=== PATIENT | female | born 1985 | race Caucasian/White ===

== ENCOUNTER 2021-02-21 09:07 | Outpatient (REF) | payer OTHER, SELFPAY ==
--- NOTE | ~2021-02-21 | US_ITS ---
EXAMINATION: US ABDOMEN COMPLETE CLINICAL INFORMATION: Abnormal LFTs. COMPARISON: Ultrasound abdomen complete 06/05/2015 and 06/27/2014. TECHNIQUE: Real-time imaging of the abdominal viscera. FINDINGS: PANCREAS: Not well visualized due to bowel gas. ABDOMINAL AORTA: The proximal, mid, and distal segments are normal in caliber. INFERIOR VENA CAVA: Visualized portions are normal. LIVER: The liver is not optimally visualized. Liver size and contour are normal. The echotexture is increased. No focal liver lesion or biliary ductal dilatation is seen. GALLBLADDER: Surgically absent. COMMON BILE DUCT: Normal in caliber measuring 0.3 cm in diameter. RIGHT KIDNEY: Normal. No hydronephrosis. No renal calculi or focal parenchymal lesions. The kidney measures 10.3 cm in maximum dimension. LEFT KIDNEY: Normal. No hydronephrosis. No renal calculi or focal parenchymal lesions. The kidney measures 10.3 cm in maximum dimension. SPLEEN: Normal. The spleen measures 9.0 cm in maximum dimension. FREE FLUID: None. US/US abdomen complete IMPRESSION: Limited visualization of the liver and pancreas. Liver echotexture is increased probably representing fatty infiltration.
== END 2021-02-21 09:08 | disposition home or self-care (01) ==
LOC: HO.US 09:07
PROVIDERS: PCP Internal Medicine; Visit Provider Internal Medicine
DX: R94.5 Abnormal results of liver function studies (principal)
CPT/HCPCS: 76700

== ENCOUNTER 2021-04-20 11:00 | Outpatient (RCR) | payer OTHER, SELFPAY | END 2021-11-05 11:29 | disposition home or self-care (01) | LOC: HO.PTCHIC 11:00 | PROVIDERS: PCP Internal Medicine; Visit Provider General Practice | DX: S46.912D Strain of unspecified muscle, fascia and tendon at shoulder and upper arm level, left arm, subsequent encounter (principal) | CPT/HCPCS: 97014; 97110; 97140; 97161 ==

== ENCOUNTER → 2021-05-07 10:14 | Outpatient (BNVA) | payer OTHER, SELFPAY | PROVIDERS: PCP Internal Medicine; Visit Provider Internal Medicine | DX: M79.602 Pain in left arm (principal); M94.0 Chondrocostal junction syndrome [Tietze] | CPT/HCPCS: 99202 ==

== ENCOUNTER → 2021-05-21 09:16 | Outpatient (BNVA) | payer OTHER, SELFPAY | PROVIDERS: PCP Internal Medicine; Visit Provider Internal Medicine | DX: M79.602 Pain in left arm (principal); M25.512 Pain in left shoulder; R20.0 Anesthesia of skin | CPT/HCPCS: 99212 ==

== ENCOUNTER 2021-06-07 13:24 | Outpatient (REF) | payer OTHER, SELFPAY ==
--- NOTE | ~2021-06-07 | MR_ITS ---
EXAMINATION: MRI LEFT SHOULDER WITHOUT CONTRAST CLINICAL INFORMATION: Left shoulder pain COMPARISON: None. TECHNIQUE: MRI of the shoulder without contrast is performed on a 1.5 Marely high-field scanner. FINDINGS: ROTATOR CUFF: Supraspinatus tendinosis. No rotator cuff tear. No muscle atrophy or fatty infiltration. BICEPS: Normal. CORACOACROMIAL ARCH: The undersurface of the acromion is flat with no subacromial spur. The acromioclavicular joint is normal. Mild subacromial subdeltoid bursitis. LABRUM/CAPSULE: Normal. GLENOHUMERAL JOINT/MARROW: No significant joint effusion. No focal articular cartilage defect. ADDITIONAL FINDINGS: None. MR/MR shoulder LT wo con IMPRESSION: Mild supraspinatus tendinosis and subacromial subdeltoid bursitis. No rotator cuff tear.
== END 2021-06-07 13:25 | disposition home or self-care (01) ==
LOC: HO.MRI 13:24
PROVIDERS: PCP Internal Medicine; Visit Provider Internal Medicine
DX: M79.602 Pain in left arm (principal); M25.512 Pain in left shoulder
CPT/HCPCS: 73221

== ENCOUNTER 2021-08-16 10:10 | Outpatient (REF) | payer OTHER, SELFPAY ==
--- NOTE | 2021-08-16 | EMG_ITS ---
Left median, ulnar, motor, and sensory studies were performed. Left radial sensory study was performed and paraspinal muscles were tested. IMPRESSION: This study was unremarkable with no evidence of entrapment neuropathy affecting left hand and arm. MD DWAIN Ferrara/TIMOTHY / [id number]
== END 2021-08-16 10:11 | disposition home or self-care (01) ==
LOC: HO.NEURO 10:10
PROVIDERS: Visit Provider Internal Medicine
DX: R20.0 Anesthesia of skin (principal)
CPT/HCPCS: 95886; 95909

== ENCOUNTER → 2021-08-24 08:51 | Outpatient (BNVA) | payer OTHER, SELFPAY | PROVIDERS: PCP Internal Medicine; Visit Provider Internal Medicine ==

== ENCOUNTER → 2021-11-09 08:51 | Outpatient (BNVA) | payer OTHER, SELFPAY | PROVIDERS: PCP Internal Medicine; Visit Provider Internal Medicine | DX: Z13.89 Encounter for screening for other disorder (principal) ==

== ENCOUNTER 2021-11-16 05:56 | Outpatient (REF) | payer OTHER, SELFPAY | END 2021-11-16 05:57 | disposition home or self-care (01) | LOC: HO.RADIR 05:56 | PROVIDERS: Visit Provider Internal Medicine | DX: M25.512 Pain in left shoulder (principal) | CPT/HCPCS: 20610 ==

== ENCOUNTER → 2022-02-01 09:53 | Outpatient (BNVA) | payer OTHER, SELFPAY | PROVIDERS: PCP Internal Medicine; Visit Provider Internal Medicine | DX: M25.512 Pain in left shoulder (principal) | CPT/HCPCS: 20610; 99212; J2795; J3300 ==

== ENCOUNTER 2022-08-27 11:55 | Outpatient (REF) | payer OTHER, SELFPAY | END 2022-08-27 11:56 | disposition home or self-care (01) | LOC: HO.NEURO 11:55 | PROVIDERS: PCP Internal Medicine; Visit Provider Internal Medicine | DX: Z13.89 Encounter for screening for other disorder (principal) ==

== ENCOUNTER 2022-08-28 12:53 | Outpatient (REF) | payer OTHER, SELFPAY ==
--- NOTE | 2022-08-28 | EMG_ITS ---
Please see scanned EMG / Nerve Conduction Report. MTDD
== END 2022-08-28 12:54 | disposition home or self-care (01) ==
LOC: HO.NEURO 12:53
PROVIDERS: PCP Internal Medicine; Visit Provider Internal Medicine
DX: M79.605 Pain in left leg (principal)
CPT/HCPCS: 95885; 95913

== ENCOUNTER → 2023-09-05 07:54 | Outpatient (REF) | payer OTHER, SELFPAY ==
--- NOTE | ~2023-09-05 | XR_ITS ---
EXAMINATION: XR CHEST CLINICAL INFORMATION: Chest wall pain reproducible upon exam. Left chest wall pain. COMPARISON: None available. TECHNIQUE: 2 views of the chest were obtained. FINDINGS: There is no gross pneumothorax. Heart size is normal. Surgical clips in the right upper quadrant of the abdomen. No pleural effusion. Minimal degenerative changes in the thoracic spine. No focal consolidation to suggest pneumonia. Focal convexity along the right heart border of indeterminate etiology. Correlation with the clinical exam recommended. Direct correlation with prior images is recommended and if prior images are provided, an addendum will be dictated. In the absence of prior images, CT scan could be considered for further evaluation. XR/XR chest 2V IMPRESSION: Focal convexity along the right heart border of indeterminate etiology. Correlation with the clinical exam recommended. Direct correlation with prior images is recommended and if prior images are provided, an addendum will be dictated. In the absence of prior images, CT scan could be considered for further evaluation. This study was presented today September 08, 2023 for interpretation. Stat results provided at this time as requested by referring provider.
--- NOTE | ~2023-09-05 | XR_ITS ---
EXAMINATION: XR SHOULDER, LEFT CLINICAL INFORMATION: Decreased range of motion, tenderness on palpation. COMPARISON: MR left shoulder of 06/07/2021. TECHNIQUE: 4 views of the left shoulder. FINDINGS: Mild degenerative changes in the acromioclavicular joint with joint space narrowing and hypertrophic change. Degenerative changes with hypertrophic change along the glenoid. XR/XR shoulder LT min 2V IMPRESSION: 1. Mild degenerative changes in the acromioclavicular joint. 2. Degenerative changes with hypertrophic change along the glenoid.
--- NOTE | 2023-09-05 07:58 | CA_ITS ---
Acquisition Time: 2023-09-05 08:38:56 Total Exercise Time: 00:06:31 Test Indications: CP, SOB Medications: SEE H Protocol: HILTON Max HR: 169 BPM 91% of Pred: 184 BPM Max BP: 154/078 mmHG Max Work Load: 7.7 METS Exercise stress test exercise 6 min 31 sec of Hilton protocol achieving 91% MPHR, with mild SOB, no chest discomfort, with isolated PVC, with normotensive response to exercise, withinverted T wave lead 3. Breathing returned to normal quickly with rest. Test reviewed with Dr. Phoenix. Referred By: Jena Alarcon Overread By: Libertad Sandoval
== END ==
LOC: HO.CARD 07:54
PROVIDERS: PCP Internal Medicine; Visit Provider Family Medicine
DX: R07.89 Other chest pain (principal); M25.512 Pain in left shoulder
CPT/HCPCS: 71046; 73030; 93017

== ENCOUNTER → 2023-09-05 07:58 | Outpatient (BNV) | payer OTHER, SELFPAY | PROVIDERS: PCP Internal Medicine; Visit Provider Nurse Practitioner | DX: R07.89 Other chest pain (principal); R06.02 Shortness of breath | CPT/HCPCS: 93016; 93018 ==

== ENCOUNTER 2023-11-19 10:47 | Outpatient (AMB) | payer OTHER, SELFPAY ==
--- NOTE | 2023-11-19 10:52 | A.OFFVIS_ITS ---
Vital Signs 11/19/23 10:53 Height 5 ft 2 in Weight 213 lb 13.574 oz BMI 39.1 BP 120/60 Blood Pressure Location Lt brachial Position Sitting Pulse 84 Pulse Source Pulse Oximeter Intake Visit Reasons: [employer]/Dr. Small/Chest pain Allergies No Known Allergies Allergy (Verified 02/01/22 10:00) Medication List - Last Reconciled 11/19/23 by Jeferson Best MD cholecalciferol (vitamin D3) 50 mcg PO DAILY cyclobenzaprine 5 mg PO TID PRN diclofenac sodium 1% (Arthritis Pain (diclofenac)) 4 grams topical QID HPI Comments Details: Mirlande is here for consultation regarding chest pains. She states that she has had this pain for quite some time now. Essentially pain in the sternal area and it goes to the left shoulder area and then down the left arm. However, it is essentially present all the time, 24 hours a day. If she can be resting, sitting, lying down extra and she has the pain. Nothing exertional. Additionally, in certain positions, the pain is much worse than the other. Overall, seems to be rather musculoskeletal and not cardiac. No previous cardiac history otherwise. [facility] Medical History (Updated 11/19/23 @ 11:03 by Carla Alvarado) FH: cholecystectomy Right nephrolithiasis Sciatica, left side Tobacco abuse Surgical History (Updated 11/19/23 @ 11:03 by Carla Alvarado) Hx of cholecystectomy Family History (Updated 11/19/23 @ 11:04 by Carla Alvarado) Father Heart attack Social History (Updated 11/19/23 @ 11:05 by Carla Alvarado) Alcohol intake: current Alcohol intake frequency: holidays/special occasions only Patient Tobacco Use Status: Current someday Tobacco user Tobacco use type: Cigarette Review of Systems Const Denies weakness ENT Denies dizziness Card Reports chest pain, Reports chest pain with activity, Denies syncope, Denies rapid heart rate, Denies pedal edema, Denies edema, Denies leg edema, Denies lightheadedness, Denies palpitations, Denies dyspnea, Denies dyspnea on exertion and Denies orthopnea Resp Denies cough, Denies dyspnea and Denies dyspnea on exertion GI Denies hematochezia and Denies change in stool character Musc Denies abnormal gait, Denies muscle cramps, Denies muscle weakness, Denies numbness, Denies radiating pain into limb and Denies tingling Neuro Denies abnormal gait, Denies dizziness, Denies syncope, Denies numbness, Denies tingling and Denies weakness Endo Denies palpitations Physical Exam Vital Signs: Last Vital Signs Pulse 84 11/19/23 10:53 BP 120/60 11/19/23 10:53 BMI result Body Mass Index 39.1 Const General: comfortable and no acute distress Orientation/consciousness: patient oriented x3 HEENT Other: Unremarkable Head: Yes normal to inspection Neck Neck: Yes normal visual inspection Chest Chest palpation & inspection: normal inspection of the chest Resp Auscultation: clear to auscultation bilaterally Cardio Palpation: normal PMI Heart sounds: S1 normal heart sound present, S2 normal heart sound present, no gallops, no murmurs and no rubs GI Palpation (GI): Soft to palpation Back/Spine/Pelvis Other: unremarkable Skin General skin exam: no rashes or lesions noted Neuro General: patient oriented x3 Extrem General: Yes normal to inspection Psych Mental Status: mental status grossly normal Office Procedures EKG Details: EKG with sinus rhythm at 84/Min; no significant ST-T changes and otherwise unremarkable[place] [id number], Complete Assessment & Plan Assessment & Plan (1) Costochondritis: Code(s): M94.0 - Chondrocostal junction syndrome [Tietze] Category: Medical (2) Left shoulder pain: Code(s): M25.512 - Pain in left shoulder Category: Medical Plan Her symptoms are suggestive of musculoskeletal etiology. Non anginal. It seems that she has already had a stress test through her own PCP. That is negative at 7.7 Mets. No further cardiac workup is necessary. Weight loss, smoking cessation discussed. Coding Level of Care Code New Pt Level 3 (44330) Diagnoses Costochondritis M94.0 Left shoulder pain M25.512 CPT Codes EKG - CPT: 05370-[id number], Complete ([id number])
[2023-11-19 10:53] VITALS: BP 120/60; PULSE 84; BMI 39.1
== END 2023-11-19 11:28 | disposition home or self-care (01) ==
PROVIDERS: PCP Internal Medicine; Visit Provider Internal Medicine
DX: M94.0 Chondrocostal junction syndrome [Tietze] (principal); M25.512 Pain in left shoulder
CPT/HCPCS: 93010; 99203

== ENCOUNTER → 2023-11-19 10:47 | Outpatient (BNVA) | payer OTHER, SELFPAY | PROVIDERS: PCP Internal Medicine; Visit Provider Internal Medicine | DX: M94.0 Chondrocostal junction syndrome [Tietze] (principal); M25.512 Pain in left shoulder | CPT/HCPCS: 93005; 99202 ==

== ENCOUNTER 2024-09-29 11:48 | Outpatient (REF) | payer OTHER, SELFPAY ==
[2024-09-29 14:12] LABS: MANUAL DIFF FLAG NO
[2024-09-29 14:20] LABS: Basophils Absolute Auto 0.1 X10*3/uL (0.0-0.2); Basophils Percent Auto 0.5 % (0-2); Eosinophils Absolute Auto 0.1 X10*3/uL (0.0-0.4); Eosinophils Percent Auto 0.6 % (0-4); Hematocrit 39.9 % (37.0-47.0); Hemoglobin 13.5 g/dl (12.0-16.0); Imm Gran Abs Auto 0.03 X10*3/uL (0.00-0.03); Imm Gran Pct Auto 0.3 % (0.0-0.4); Lymphocytes Absolute Auto 4.2 X10*3/uL (1.2-4.9); Lymphocytes Percent Auto 42.3 % (20-40); Mean Corpuscular HGB Conc 33.8 g/dl (31.0-35.0); Mean Corpuscular Hemoglobin 30.7 pg (27.0-33.0); Mean Corpuscular Volume 90.7 fL (80.0-98.0); Mean Platelet Volume 9.4 fL (9.4-12.3); Monocytes Absolute Auto 0.5 X10*3/uL (0.1-1.2); Monocytes Percent Auto 4.7 % (2-11); Neutrophils Absolute Auto 5.1 x10*3/uL (2.0-8.3); Neutrophils Percent Auto 51.6 % (45-73); Platelet Count 350 X10*3/uL (160-400); Red Cell Distribution Width 13.1 % (11.0-16.0)
--- OUTSIDE RECORDS SUMMARY | 2024-09-29 14:24 | XMS_ITS | Encounter Summary ---
Author Organization [employer] Address [address] [facility] [address] [place] [address] Care Team Providers Care Executive Communications Manager Name Role Phone Gilbert Small MD Primary Care Provider [phone] Reason for Visit * Reason Onset Date Comments Chart Prep 09/27/2024 Encounter Details Date Type Department Care Team ([facility] st Contact Info) Description 09/27/2024 Telephone [facility] PEDS [address], [place] [id number] Gilbert Small MD [address] [place] [address] Chart Prep Social History Tobacco Use Types Packs/Day Years Used Date Smoking Tobacco: Never Passive Smoke Exposure: Never Smokeless Tobacco: Never Depression Answer Date Recorded Patient Health Questionnaire-9 Score 0 07/04/2022 Depression Answer Date Recorded Patient Health Questionnaire-2 Score 0 07/04/2022 Comments Unknown Sex and Gender Information Value Date Recorded Sex Assigned at Female 04/29/2022 10:22 AM EDT Legal Sex Female 10:22 AM EDT Gender Identity Female 04/29/2022 10:22 AM EDT Sexual Orientation Choose not to disclose 2021 10:22 AM EDT documented as of this encounter Miscellaneous Notes * Telephone Encounter - Mayra Ross MA - 09/27/2024 3:09 PM EDT Chart Prep Labs: not applicable Images: done Vaccines due: yes Referrals: complete Screenings: na Overdue care gaps: Sbirt, SDOH, PHQ-9, Oral Health, Disability documented in this encounter Plan of Treatment Upcoming Encounters Date Type Department Care Team (Late st Contact Info) Description 11/03/2024 9:45 AM EDT Procedure Visit [facility] PED[facility] [address] [place] [address] Arlyn Zacarias MD [address] [place] [address] 12/30/2024 11:30 AM EDT Office Visit [facility] [address] [place] [address] Gilbert Small MD [address] [place] [address] documented as of this encounter Visit Diagnoses Not on filedocumented in this encounter Additional Health Concerns Assessment Noted Time PHQ-9 Depression Total Score: 0 07/04/19 23 2:51 PM EST documented as of this encounter Care Teams Executive Communications Manager Relationship Specialty Start Date End Date Gilbert Small MD [address] [place] [address] PCP - General Internal Medicine 06/11/11 documented as of this encounter
--- OUTSIDE RECORDS SUMMARY | 2024-09-29 14:24 | XMS_ITS | Encounter Summary ---
Author Organization [employer] Address [address] [facility] [address] [place] [address] Care Team Providers Care Account Clerk Name Role Phone Gilbert Small MD Primary Care Provider [phone] Encounter Details Date Type Department Care Team (Latest Contact Info) Description 09/29/2024 Travel Social History Tobacco Use Types Packs/Day Years Used Date Smoking Tobacco: Never Passive Smoke Exposure: Never Smokeless Tobacco: Never Alcohol Answer Date Recorded Q1: How often do you have a drink containing alc ohol? 2 09/29/2024 Q2: How many drinks containi ng alcohol do you have on a typical day when you are drinking? 0 09/29/2024 Q3: How often do you have six or more drinks on one occasion? 2 09/29/2024 Depression Answer Date Recorded Patient Health Questionnaire-9 Score 0 09/29/2024 Patient Health Questionnaire-9 Score 0 09/29/2024 Last PHQ-9: Questionnaire Data Not on file 0 09/29/2024 Housing Stability Answer Date Recorded What is your housing situation today? I have elliot orr 09/29/[address] you li ve. Do you have problems with any of the following? None of the above 09/29/2024 Food Insecurity Answer Date Recorded Within the past 12 months, y ou worried that your food would run out before you got money to buy more: Never True 09/29/2024 Within the past 12 months,th e food you bought just didn't last and you didn't have enough money to get more: Never True 07/2024 Transportation Answer Date Recorded In the past 12 months, has l ack of transportation kept you from medical appts, meetings, work or from getting things needed for daily living? No 09/29/2024 Utilities Answer Date Recorded In the past 12 months, has t he electric, gas, oil or water company threatened to shut off services in your home? No 09/29/2024 Depression Answer Date Recorded Patient Health Questionnaire-2 Score 0 09/29/2024 Internet Access Answer Date Recorded Internet Access Q1 Yes 09/29/2024 Internet Access Q2 Not on file 09/29/2024 Comments Unknown Sex and Gender Information Value Date Recorded Sex Assigned at Female 04/29/2022 10:22 AM EDT Legal Sex Female 10:22 AM EDT Gender Identity Female 04/29/2022 10:22 AM EDT Sexual Orientation Choose not to disclose 2021 10:22 AM EDT documented as of this encounter Plan of Treatment Upcoming Encounters Date Type Department Care Team (Late st Contact Info) Description 11/03/2024 9:45 AM EDT Procedure Visit [facility] MED & PEDS [address] [place] [address] Arlyn Zacarias MD [address] [place] [address] 12/30/2024 11:30 AM EDT Office Visit [facility] MED [facility] PEDS [address] [place] [address] Gilbert Small MD [address] [place] [address] documented as of this encounter Visit Diagnoses Not on filedocumented in this encounter Additional Health Concerns Assessment Noted Time PHQ-9 Depression Total Score: 0 09/30/19 25 10:45 AM EDT documented as of this encounter Care Teams Account Clerk Relationship Specialty Start Date End Date Gilbert Small MD [address] [place] [address] PCP - General Internal Medicine 06/11/11 documented as of this encounter
--- OUTSIDE RECORDS SUMMARY | 2024-09-29 14:24 | XMS_ITS | Clinical Summary ---
Author Organization [employer] Address [address] [facility] [address] [place] [address] Care Team Providers Care Public Relations Supervisor Name Role Phone Gilbert Small MD Primary Care Provider [phone] Allergies No known active allergies Medications aluminum-magne sium hydroxide-snehal thicone (Maalox Max) 400-400-40 MG/5ML suspension take 20 milliliter by oral route between meals and at bedtime as needed 05/02/20 22 Active amitriptyline (Elavil) 25 MG tablet Take 1 tablet by mouth at bed time. 04/23/20 21 Active cholecalcifero l (Vitamin D-3) 50 MCG (2000 UT) tablet Take 1 tablet by mouth at bed time. 03/18/20 22 Active cholecalcifero l (Vitamin D-3) 50 MCG (2000 UT) tablet Take by mouth in the morning. 03/18/20 22 Active celecoxib (CeleBREX) 200 MG capsuleIndicat ions:Costochon dritis, acute Take 1 capsule (200 mg) by mouth every 12 (twelve) hours. 30 capsule 07/04/19 23 Active azithromycin (Zithromax) 250 MG tabletIndicati ons:Squamous blepharitis of left upper eyelid Take 2 tabs orally on day 1 and then 1 tab orally for 4 more days 6 tablet 08/08/19 23 Active diclofenac (Cataflam) 50 MG tablet Take 1 tablet (50 mg) by mouth 3 times daily. 90 tablet 09/01/19 24 Active cyclobenzaprin e (Flexeril) 10 MG tabletIndicati ons:Muscle spasm Take 1 tablet (10 mg) by mouth 3 times daily for 10 days. 30 tablet 09/30/19 25 025 Active phentermine 15 MG capsuleIndicat ions:Class 2 obesity due to excess calories without serious comorbidity with body mass index (BMI) of 38.0 to 38.9 in adult Take 1 capsule (15 mg) by mouth before breakfast. 30 capsule 09/30/19 25 025 Active topiramate (Topamax) 25 MG tabletIndicati ons:Class 2 obesity due to excess calories without serious comorbidity with body mass index (BMI) of 38.0 to 38.9 in adult Take 1 tablet (25 mg) by mouth every 12 (twelve) hours. 60 tablet 11 09/30/19 25 026 Active fluconazole (Diflucan) 150 MG tabletIndicati ons:Pityriasis versicolor 2 tabs on day 1, 2 tabs on day 7 4 tablet 09/30/19 25 Active cyclobenzaprin e (Flexeril) 10 MG tablet Take 1 tablet (10 mg) by mouth 3 times daily for 10 days. 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 Ordered stress test and XR of chest. Acute pain of left shoulder 09/01/2023 Assessment & Plan (09/02/2023 2:49 AM EST): Ordered XR of left shoulder. Prescribed diclofenac and cyclenzaprine for pain management. Kidney stone 07/04/2022 Sciatica 11/28/2017 Encounters Date Type Department Care Team Description 09/29/2024 10:45 AM EDT Office Visit [facility] [address] [place] [address] Gilbert Small MD Annual physical exam (Primary Dx); Left-sided chest wall pain; Muscle spasm; Dietary counseling; Exercise counseling; Class 2 obesity due to excess calories without serious comorbidity with body mass index (BMI) of 38.0 to 38.9 in adult; Pityriasis versicolor 09/29/2024 Travel 09/28/2024 Travel 09/27/2024 Telephone [facility] [address] [place] [address] Gilbert Small MD Chart Prep 09/21/2024 Patient Outreach [facility] [address] [place] [address] Gilbert Small MD Pre-visit Planning (Pre visit planning unable to LVM ) from Last 3 Months Immunizations Name Administration Dates Next Due Influenza injectable quadriv alent IIV4 with preservative 03/15/2015 Influenza injectable quadriv alent preservative free 03/18/2022,04/05/2021,04/13/2020,2016 Influenza, IIV3, injectable 05/02/2014 Influenza, Split (incl. milan fied surface antigen) 03/15/2013 Tdap 08/13/2016 Family History Medical History Relation Name Comments Coronary artery disease Father Diabetes Father Hyperlipidemia Father Coronary artery disease Mother Depression Mother Thyroid disease Mother Relation Name Status Comments Father Mother Social History Tobacco Use Types Packs/Day Years Used Date Smoking Tobacco: Never Passive Smoke Exposure: Never Smokeless Tobacco: Never Tobacco Cessation:Counseling Given: Not Answered Alcohol Answer Date Recorded Q1: How often [...] not to disclose 2021 10:22 AM EDT Last Filed Vital Signs Vital Sign Reading Time Taken Comments Blood Pressure 124/86 09/29/2024 10:44 AM EDT Pulse 86 09/29/2024 10:44 AM EDT Temperature 36.6 ??C (97.8 ??F) 09/29/2024 10:44 AM E DT Respiratory Rate 20 09/29/2024 10:44 AM EDT Oxygen Saturation 98% 09/29/2024 10:44 AM EDT Inhaled Oxygen Concentration - - Weight 97.8 kg (215 lb 9.6 oz) 09/29/2024 10:44 AM EDT Height 159 cm (5' 2.6 ) 09/29/2024 10:44 AM EDT Body Mass Index 38.68 09/29/2024 10:44 AM EDT Plan of Treatment Upcoming Encounters Date Type Department Care Team (Late st Contact Info) Description 11/03/2024 9:45 AM EDT Procedure Visit [facility] [address] [place] [address] Arlyn Zacarias MD [address] [place] [address] 12/30/2024 11:30 AM EDT Office Visit [facility] [address] [place] [address] Gilbert Small MD [address] [place] [address] Health Maintenance Due Date Last Done Comments Family Planning (PISQ) 2001 Hepatitis B Vaccines (1 of 3 - 19+ 3-dose series) 2005 HPV/Cotest 07/23/2023 07/23/2022, 11/12/2018 Pap Smear 07/23/2023 07/23/2022, 11/12/2018 COVID-19 Vaccine ( season) 2024 11/19/2020, 10/29/2020 Influenza Vaccine (#1) 2024 , 04/05/2021, 04/13/2020, Additional history exists Cervical Cancer Screening 08/02/2025 Po stponed from 07/23/2023 (Other Medical Reasons) Alcohol/Substance Use Screening 09/29/2025 09/29/2024 Depression Screening 09/29/2025 09/29/2024, 09/30/19 25 SDOH Screening 09/29/2025 09/29/2024 Tobacco Screening 09/29/2025 09/29/2024 Lipid Panel 01/30/2026 01/30/2021 DTaP/Tdap/Td Vaccines (2 - Td or Tdap) 08/13/2026 08/13/2016 Zoster Vaccines (1 of 2) 2036 RSV Patients and Patients Aged 60 years or older (1 - 1-dose 75+ series) 2061 HIV Screening Completed 10/18/2021 Hepatitis C Screening Completed 10/18/2021, 021 HIB Vaccines Aged Out No longer eligi ble based on patient's age to complete this topic HPV Vaccines Aged Out No longer eligi ble based on patient's age to complete this topic Hepatitis A Vaccines Aged Out No long er eligible based on patient's age to complete this topic IPV Vaccines Aged Out No longer eligi ble based on patient's age to complete this topic Meningococcal Vaccine Aged Out No hussain denis eligible based on patient's age to complete this topic Pneumococcal Vaccine: Pediatrics (0 to 5 Years) and At-Risk Patients (6 to 49) Years) Aged Out No longer eligible based on patient's age to complete this topic RSV under 20 months Aged Out No longe r eligible based on patient's age to complete this topic Rotavirus Vaccines Aged Out No longer eligible based on patient's age to complete this topic Procedures Procedure Name Priority Date/Time Associated Diagnosis Comments CBC WITH AUTO DIFFERENTIAL Routine 09/29/2024 11:50 AM EDT Annual physical exam THINPREP IMAGING PAP AND HPV MRNA E6/E7, WITH CT/NG, TRICHOMONAS Routine 07/23/2022 12:00 AM EST ZZZ HISTORICAL HEPATITIS C AB W/REFL TO HCV RNA, QN, PCR Routine 10/18/2021 10:55 AM EDT HIV 1/2 ANTIGEN/ANTIBODY, FOURTH GENERATION W/RFL Routine 10/18/2021 10:55 AM EDT LIPID PANEL, STANDARD Routine 01/30/2021 11:20 AM EDT from Last 3 Months or Most Recently Relevant to Health Maintenance Results * (ABNORMAL) CBC auto differential (09/29/2024 11:50 AM EDT) White Blood Count 10.0 4.8 - 10.8 X10*3/uL [facility] Red Blood Count 4.40 4.20 - 5.50 X10*6/uL [facility] Hemoglobin 13.5 12.0 - 16.0 g/dl [facility] Hematocrit 39.9 37.0 - 47.0 % [facility] Mean Corpuscular Volume 90.7 80.0 - 98.0 fL [facility] Mean Corpuscular Hemoglobin 30.7 27.0 - 33.0 pg [facility] Mean Corpuscular HGB Conc 33.8 31.0 - 35.0 g/dl [facility] Red Cell Distribution Width 13.1 11.0 - 16.0 % [facility] Platelet Count 350 160 - 400 X10*3/uL [facility] Mean Platelet Volume 9.4 9.4 - 12.3 fL [facility] Neutrophils Percent Auto 51.6 45 - 73 % [facility] Imm Gran Pct Auto 0.3 0.0 - 0.4 % [facility] Lymphocytes Percent Auto 42.3(H) 20 - 40 % [facility] Monocytes Percent Auto 4.7 2 - 11 % [facility] Eosinophils Percent Auto 0.6 0 - 4 % [facility] Basophils Percent Auto 0.5 0 - 2 % [facility] NRBC Pct Auto 0.0 0.0 - 0.2 /100WBC [facility] Neutrophils Absolute Auto 5.1 2.0 - 8.3 x10*3/uL [facility] Imm Gran Abs Auto 0.03 0.00 - 0.03 X10*3/uL [facility] Lymphocytes Absolute Auto 4.2 1.2 - 4.9 X10*3/uL [facility] Monocytes Absolute Auto 0.5 0.1 - 1.2 X10*3/uL [facility] Eosinophils Absolute Auto 0.1 0.0 - 0.4 X10*3/uL [facility] Basophils Absolute Auto 0.1 0.0 - 0.2 X10*3/uL [facility] NRBC Abs Auto 0.000 0.0 - 0.012 X10*3/uL [facility] Blood Venous blood specimen / Unknown 09/29/2024 11:50 AM EDT 09/29/2024 2:05 PM EDT us Gilbert Small MD LAB BLOOD ORDERABLES Final Result [facility] [address] [place] [address] [phone] * Thinprep TIS PAP And HPV mRNA E6/E7, CT/NG, TRICH (07/23/2022 12:00 AM EST) Clinical Information: Intrauterine contraceptive device NEW ONSET BLEEDING W IUD [facility] LMP: NONE GIVEN [facility] [place] [facility] Prev. PAP: NONE GIVEN [facility] Prev. BX: NONE GIVEN [facility] SOURCE: None given [facility] Statement Of Adequacy: [facility] Comment: Satisfactory for evaluation. Endocervical/transformation zone component absent. Interpretation/Re sult: Negative for intraepithelial lesion or malignancy. [facility] Infection Shift in vaginal marcia suggestive of bacterial vaginosis. [facility] COMMENT: [facility] Comment: This case could not be evaluated with computer assisted technology. The slide was manually screened according to routine procedures. Captain'S Assistant: Melissa ferguson [facility] Comment: BLC,CT(ASCP) CT screening location: [address] ??[id number] (Always Message) [facility] Comment: EXPLANATORY NOTE: The Pap is a screening test for cervical cancer. It is not a diagnostic test and is subject to false negative and false positive results. It is most reliable when a satisfactory sample, regularly obtained, is submitted with relevant clinical findings and history, and when the Pap result is evaluated along with historic and current clinical information. HPV nRNA E6/E7 Not Detected Not Detected [facility] Comment: Methodology: Wooling Machine Operator-Mediated Amplification This assay detects E6/E7 viral messenger RNA (mRNA) from 14 high-risk HPV types (16,18,31,33,35,39,45,51,52,56,58,59,66,68). Cervical sources are required for HPV testing. If a vaginal source from a patient who has had a total hysterectomy with removal of cervix was submitted, please contact the testing laboratory for alternative testing options. For additional information, please refer to http://education.Brand.net/faq/HQW465e1 (This link if provided for information/ educational purposes only.) Chlamydia trachomatis RNA, TMA, Urogenital NOT DETECTED NOT DETECTED [facility] Neisseria gonorrhoeae RNA, TMA, Urogenital NOT DETECTED NOT DETECTED [facility] (Always Message) [facility] [place] [facility] Comment: The analytical performance characteristics of this assay, when used to test SurePath(TM) specimens have been determined by [facility]. The modifications have not been cleared or approved by the FDA. This assay has been validated pursuant to the CLIA regulations and is used for clinical purposes. For additional information, please refer to https://[employer].Brand.net/faq/IAS246 (This link is being provided for information/ educational purposes only.) Trichomonas vaginalis, QL, TMA, PAP Vial NOT DETECTED NOT DETECTED [facility] [place] [facility] Comment: The analytical performance characteristics of this assay have been determined by [facility]. The modifications have not been cleared or approved by the FDA. This assay has been validated pursuant to the CLIA regulations and is used for clinical purposes. For additional information, please refer to http://[employer] [facility]/ faq/Trichomonastma (This link is being provided for information/ educational purposes only.) 07/23/2022 07/24/2022 8:2 4 PM EST Narrative [facility] - 08/01/2022 4:39 PM EST FASTING: UNKNOWN Denise Lyons [facility] LAB PATHOLOGY ORDERABLES Final Result [facility] [address], [place] [address] [facility] [address] [facility], ([address]) [place] [address] * HEPATITIS C AB W/REFL TO HCV RNA, QN, PCR (10/18/2021 10:55 AM EDT) HEPATITIS C ANTIBODY NON-REACT OLEG NON-REACT OLEG [facility] INDEX 0.01 <1.00 [facility] Comment: ?? HCV antibody was non-reactive. There is no laboratory ?? evidence of HCV infection. ?? In most cases, no further action is required. However, if recent HCV exposure is suspected, a test for HCV RNA (test code 42668) is suggested. ?? For additional information please refer to http://[employer].Brand.net/faq/PRU29d9 (This link is being provided for informational/ educational purposes only.) ?? 10/18/2021 10:5 5 AM EDT Jena Alarcon MD HISTORICAL/NON ORDERABLE LABS Final Result Performing Organization Address [facility] de Phone Number [facility] [address] [place] [address], * HIV 1/2 ANTIGEN/ANTIBODY,FOURTH GENERATION W/RFL (10/18/2021 10:55 AM EDT) Pathologist [facility] HIV-1/2 ANTIGEN AND ANTIBODIES, 4TH GENERATION W/ REFLEX NON-REACT OLEG NON-REACT OLEG [facility] Comment: HIV-1 antigen and HIV-1/HIV-2 antibodies were not detected. There is no laboratory evidence of HIV infection. ?? PLEASE NOTE: This information has been disclosed to you from records whose confidentiality may be protected by state law. ??If your state requires such protection, then the state law prohibits you from making any further disclosure of the information without the specific written consent of the person to whom it pertains, or as otherwise permitted by law. A general authorization for the release of medical or other information is NOT sufficient for this purpose. ? For additional information please refer to http://education.Brand.net/faq/XQK457 (This link is being provided for informational/ educational purposes only.) ? The performance of this assay has not been clinically validated in patients less than 2 years old. ?? 10/18/2021 10:5 5 AM EDT Jena Alarcon MD LAB BLOOD ORDERABLES Final Re sult Performing Organization Address [facility] de Phone Number [facility] [address] [place] [address], * (ABNORMAL) LIPID PANEL, STANDARD (01/30/2021 11:20 AM EDT) Pathologist [facility] Chol/HDLC Ratio 5.2(H) <5.0 (calc) [facility] Cholesterol, Total 257(H) <200 mg/dL [facility] HDL Cholesterol 49(L) > OR = 50 mg/dL [facility] LDL Cholesterol 169(H) mg/dL (calc) [facility] Comment: Reference range: <100 ?? Desirable range <100 mg/dL for primary prevention; ?? <70 mg/dL for patients with CHD or diabetic patients ?? with > or = 2 CHD risk factors. ?? LDL-C is now calculated using the Charleen ?? calculation, which is a validated novel method providing ?? better accuracy than the Friedewald equation in the ?? estimation of LDL-C. ?? Luis Miguel LONG et al. GLORIA. 2013;310(19): 6266-6082 ?? (http://education.citiservi/faq/WCF502) Non-HDL Cholesterol 208(H) <130 mg/dL (calc) [facility] Comment: For patients with diabetes plus 1 major ASCVD risk ?? factor, treating to a non-HDL-C goal of <100 mg/dL ?? (LDL-C of <70 mg/dL) is considered a therapeutic ?? option. Triglycerides 231(H) <150 mg/dL [facility] Comment: ?? If a non-fasting specimen was collected, consider repeat triglyceride testing on a fasting specimen if clinically indicated. ?? Munson et al. J. of Clin. Lipidol. 2015;9:129-169. ?? 01/30/2021 11:2 0 AM EDT Gilbert Small MD LAB BLOOD ORDERABLES Final Result [facility] [address] from Last 3 Months or Most Recently Relevant to Health Maintenance Insurance [facility] Care Teams Public Relations Supervisor Relationship Specialty Start Date End Date Gilbert Small MD [address] [place] [phone] PCP - General Internal Medicine 06/11/11
--- OUTSIDE RECORDS SUMMARY | 2024-09-29 14:24 | XMS_ITS | Encounter Summary ---
Author Organization [employer] Address [address] [facility] 7 [place] [address] Care Team Providers Care Barn Manager Name Role Phone Gilbert Small MD Primary Care Provider [phone] Reason for Visit * Reason Comments Annual Exam Encounter Details Date Type Department Care Team ([facility] st Contact Info) Description 09/29/2024 10:45 AM EDT Office Visit [facility] MED & PEDS [address] [place], [place] [phone] Gilbert Small MD [address] [place] [address] Annual physical exam (Primary Dx); Left-sided chest wall pain; Muscle spasm; Dietary counseling; Exercise counseling; Class 2 obesity due to excess calories without serious comorbidity with body mass index (BMI) of 38.0 to 38.9 in adult; Pityriasis versicolor Social History Tobacco Use Types Packs/Day Years [...] AM EDT documented as of this encounter Last Filed Vital Signs Vital Sign Reading [...] Mass Index 38.68 09/29/2024 10:44 AM EDT documented in this encounter Progress Notes * Gilbert Small MD - 09/29/2024 10:45 AM EDT Subjective Patient ID: Mirlande Kumar is a 39 y.o. female who presents for Annual Exam. HPI 1) h/o shingle. Treated. No post herpetic neuralgia. Pt just has some mild discomfort. Still has some scabs on the right posterior mid chest 2) h/o obesity and family h/o diabetes Mirlande Kumar amelie like to be checked for diabetes. Denies polyuria/ polydipsia, admits feeling her feet are hot at nightime. 3) H/o skin rash on and off. Worse and itchy during the summertime. Located on the anterior chest and upper back. 4) H/o difficulty losing weight. Mirlande Kumar has tried walking daily, has made some changes: eatingless carb, more salads and vegetable w/o significant improvement. She would like to try medication for weight loss. 5) Pt is requesting a refill of her muscle relaxer to control her neck muscle spasm which is exacerbated by driving during long period of time. Patient Active Problem List Diagnosis Kidney stone Sciatica Left-sided chest wall pain Acute pain of left shoulder Current Outpatient Medications on File Prior to Visit Medication Sig Dispense Refill aluminum-magnesium hydroxide-simethicone (Maalox Max) 400-400-40 MG/5ML suspension take 20 milliliter by oral route between meals and at bedtime as needed amitriptyline (Elavil) 25 MG tablet Take 1 tablet by mouth at bed time. azithromycin (Zithromax) 250 MG tablet Take 2 tabs orally on day 1 and then 1 tab orally for 4 moredays 6 tablet 0 celecoxib (CeleBREX) 200 MG capsule Take 1 capsule (200 mg) by mouth every 12 (twelve) hours. 30 capsule 0 cholecalciferol (Vitamin D-3) 50 MCG (1999 UT) tablet Take 1 tablet by mouth at bed time. cholecalciferol (Vitamin D-3) 50 MCG (1999 UT) tablet Take by mouth in the morning. diclofenac (Cataflam) 50 MG tablet Take 1 tablet (50 mg) by mouth 3 times daily. 90 tablet 0 [DISCONTINUED] cyclobenzaprine (Flexeril) 10 MG tablet Take 1 tablet (10 mg) by mouth 3 times dailyfor 10 days. 30 tablet 0 No current facility-administered medications on file prior to visit. No Known Allergies Review of Systems Constitutional: Negative for activity change, appetite change, chills and diaphoresis. HENT: Negative for dental problem, drooling, ear discharge, ear pain and hearing loss. Eyes: Negative for pain, discharge and itching. Respiratory: Negative for cough, choking and chest tightness. Cardiovascular: Negative for chest pain and leg swelling. Gastrointestinal: Negative for blood in stool and diarrhea. Genitourinary: Negative for difficulty urinating, dyspareunia, dysuria, enuresis, flank pain, frequency and genital sores. Musculoskeletal: Negative for arthralgias, gait problem and joint swelling. Skin: Negative for pallor. Neurological: Negative for dizziness, seizures, speech difficulty, light- headedness and numbness. Psychiatric/Behavioral: Negative for behavioral problems, confusion and decreased concentration. Objective BP 124/86 (BP Location: Right arm, Patient Position: Sitting, BP Cuff Size: Large adult) Pulse 86 Temp 97.8 ??F (36.6 ??C) (Oral) Resp 20 Ht 5' 2.6 (1.59 m) Wt 215 lb 9.6 oz (97.8 kg) SpO2 98% BMI 38.68 kg/m?? Physical Exam Constitutional: General: She is not in acute distress. Appearance: Normal appearance. She is not ill-appearing, toxic-appearing or diaphoretic. HENT: Head: Normocephalic. Right Ear: Tympanic membrane normal. There is no impacted cerumen. Left Ear: Tympanic membrane normal. There is no impacted cerumen. Nose: Nose normal. No congestion or rhinorrhea. Mouth/Throat: Mouth: Mucous membranes are moist. Eyes: General: No scleral icterus. Right eye: No discharge. Left eye: No discharge. Pupils: Pupils are equal, round, and reactive to light. Cardiovascular: Rate and Rhythm: Normal rate and regular rhythm. Heart sounds: No murmur heard. No friction rub. No gallop. Pulmonary: Effort: Pulmonary effort is normal. No respiratory distress. Breath sounds: No stridor. No wheezing, rhonchi or rales. Chest: Chest wall: No tenderness. Abdominal: General: There is no distension. Palpations: Abdomen is soft. There is no mass. Tenderness: There is no abdominal tenderness. There is no right CVA tenderness or left CVA tenderness. Musculoskeletal: General: Normal range of motion. Cervical back: Normal range of motion. Skin: Comments: Mildly erythematous and brownish patches of varied form w/ fine scales of the anterior chest and posterior chest. Neurological: General: No focal deficit present. Mental Status: She is alert and oriented to person, place, and time. Psychiatric: Mood and Affect: Mood normal. Assessment/Plan Diagnoses and all orders for this visit: Annual physical exam Comments: Normal cardiopulmonary exam Pt is to maintain a healthy and balanced diet Orders: - CBC auto differential; Future - Comprehensive Metabolic Panel; Future - Lipid Panel, Standard; Future - HIV-1/2 Antigen and Antibodies, Fourth Generation, with Reflexes; Future - Hepatitis C Viral RNA, Quantitative, Real-Time PCR; Future - TSH W/Reflex to FT4; Future Left-sided chest wall pain Comments: Pt denies any pain during the evaluation No acute intervention needed today. Muscle spasm Comments: Stretching exercises Heat therapy recommended. Orders: - cyclobenzaprine (Flexeril) 10 MG tablet; Take 1 tablet (10 mg) by mouth 3 times daily for 10 days. Dietary counseling Exercise counseling Class 2 obesity due to excess calories without serious comorbidity with body mass index (BMI) of 38.0 to 38.9 in adult - phentermine 15 MG capsule; Take 1 capsule (15 mg) by mouth before breakfast. - topiramate (Topamax) 25 MG tablet; Take 1 tablet (25 mg) by mouth every 12 (twelve) hours. Dietary Recommendations: Fruits, vegetables, whole grains, protein foods, and fat-free or low-fat dairy products are healthychoices. Eat different types of protein foods in your diet. This can include seafood, lean meats, poultry, beans, peas, lentils, nuts, seeds, soy products, and eggs. Limit foods and beverages higher in added sugars, saturated fat, and sodium. Exercise Recommendations: At least 150 minutes of moderate-intensity physical activity per week, or an equivalent combinationof moderate- and vigorous-intensity activity Pityriasis versicolor - fluconazole (Diflucan) 150 MG tablet; 2 tabs on day 1, 2 tabs on day 7 documented in this encounter Plan of Treatment Upcoming Encounters Date Type Department Care Team (Late st Contact Info) Description 11/03/2024 9:45 AM EDT Procedure Visit [facility] MED & PEDS [address] [place] [address] Arlyn Zacarias MD [address] [place] [address] 12/30/2024 11:30 AM EDT Office Visit [facility] MED & PEDS [address] [place] [address] Gilbert Small MD [address] [place], [place] [phone] Scheduled Orders Name Type Priority Associated Diagnoses Orde r Schedule Comprehensive Metabolic Panel Lab Routine Annual physical exam Expected: 09/29/2024 (Approximate), Expires: 09/29/2025 Lipid Panel, Standard Lab Routine Annual physical exam Expected: 09/29/2024 (Approximate), Expires: 09/29/2025 HIV-1/2 Antigen and Antibodies, Fourth Generation, with Reflexes Lab Routine Annual physical exam Expected: 09/29/2024 (Approximate), Expires: 09/29/2025 Hepatitis C Viral RNA, Quantitative, Real-Time PCR Lab Routine Annual physical exam Expected: 09/29/2024 (Approximate), Expires: 09/29/2025 TSH W/Reflex to FT4 Lab Routine Annual physical exam Expected: 09/29/2024 (Approximate), Expires: 09/29/2025 documented as of this encounter Procedures Procedure Name Priority Date/Time Associated Diagnosis Comments CBC WITH AUTO DIFFERENTIAL Routine 09/29/2024 11:50 AM EDT Annual physical exam documented in this encounter Results * (ABNORMAL) CBC auto differential (09/29/2024 11:50 AM EDT) White Blood Count 10.0 4.8 - 10.8 X10*3/uL [facility] Red Blood Count 4.40 4.20 - 5.50 X10*6/uL [facility] Hemoglobin 13.5 12.0 - 16.0 g/dl [facility] Hematocrit 39.9 37.0 - 47.0 % [facility] Mean Corpuscular Volume 90.7 80.0 - 98.0 fL [facility] Mean Corpuscular Hemoglobin 30.7 27.0 - 33.0 pg [facility] Mean Corpuscular HGB Conc 33.8 31.0 - 35.0 g/dl [facility] Red Cell Distribution Width 13.1 11.0 - 16.0 % [facility] Platelet Count 350 160 - 400 X10*3/uL [facility] Mean Platelet Volume 9.4 9.4 - 12.3 fL [facility] Neutrophils Percent Auto 51.6 45 - 73 % [facility] Imm Gran Pct Auto 0.3 0.0 - 0.4 % [facility] Lymphocytes Percent Auto 42.3(H) 20 - 40 % [facility] Monocytes Percent Auto 4.7 2 - 11 % [facility] Eosinophils Percent Auto 0.6 0 - 4 % [facility] Basophils Percent Auto 0.5 0 - 2 % [facility] NRBC Pct Auto 0.0 0.0 - 0.2 /100WBC [facility] Neutrophils Absolute Auto 5.1 2.0 - 8.3 x10*3/uL [facility] Imm Gran Abs Auto 0.03 0.00 - 0.03 X10*3/uL [facility] Lymphocytes Absolute Auto 4.2 1.2 - 4.9 X10*3/uL [facility] Monocytes Absolute Auto 0.5 0.1 - 1.2 X10*3/uL [facility] Eosinophils Absolute Auto 0.1 0.0 - 0.4 X10*3/uL [facility] Basophils Absolute Auto 0.1 0.0 - 0.2 X10*3/uL [facility] NRBC Abs Auto 0.000 0.0 - 0.012 X10*3/uL [facility] Blood Venous blood specimen / Unknown 09/29/2024 11:50 AM EDT 09/29/2024 2:05 PM EDT Gilbert Small MD LAB BLOOD ORDERABLES Final Result [facility] [address] [place] [address] [phone] documented in this encounter Visit Diagnoses Diagnosis Annual physical exam- Primary Routine general medical examination at a health care facility Left-sided chest wall pain Painful respiration Muscle spasm Spasm of muscle Dietary counseling Dietary surveillance and counseling Exercise counseling Class 2 obesity due to excess calories without serious comorbidity with body mass index (BMI) of 38.0 to 38.9 in adult Pityriasis versicolor documented in this encounter Additional Health Concerns Assessment Noted Time PHQ-9 Depression Total Score: 0 09/30/19 25 10:45 AM EDT documented as of this encounter Care Teams Barn Manager Relationship Specialty Start Date End Date Gilbert Small MD [address] [place] [id number] PCP - General Internal Medicine 06/11/11 documented as of this encounter
--- OUTSIDE RECORDS SUMMARY | 2024-09-29 14:24 | XMS_ITS | Encounter Summary ---
Author Organization [employer] Address [address] [facility] [address]t [place] [address] Care Team Providers Care Procedures Rn Name Role Phone Gilbert Small MD Primary Care Provider [phone] Encounter Details Date Type Department Care Team (Latest Contact Info) Description 09/28/2024 Travel Social History Tobacco Use Types Packs/Day [...] Description 11/03/2024 9:45 AM EDT Procedure Visit [facility] MED & PEDS [address] [place] [address] Arlyn Zacarias MD [address] [place] [address] 12/30/2024 11:30 AM EDT Office Visit [facility] MED & PEDS [address] [place] [address] Gilbert Small MD [address] [place] [address] documented as of this encounter Visit Diagnoses Not on filedocumented in this encounter Additional Health Concerns Assessment Noted Time PHQ-9 Depression Total Score: 0 07/04/19 23 2:51 PM EST documented as of this encounter Care Teams Procedures Rn Relationship Specialty Start Date End Date Gilbert Small MD [address] [place] [address] PCP - General Internal Medicine 06/11/11 documented as of this encounter
[2024-09-29 14:42] LABS: Alanine Aminotransferase 29 U/L (0-31); Albumin Level 4.3 g/dL (3.5-5.0); Alkaline Phosphatase 79 U/L (39-117); Anion Gap 10 (12-20); Aspartate Amino Transferase 26 U/L (5-31); Bilirubin Total 0.4 mg/dL (0.0-1.0); Blood Urea Nitrogen 11 mg/dL (9-16); Calcium 10.1 mg/dL (8.4-10.2); Carbon Dioxide 23 mmol/L (22-29); Chloride 107 mmol/L (96-108); Cholesterol 269 mg/dL (<200); Estimated Glomerular Filt Rate > 60; Glucose Random 85 mg/dL (60-115); HDL Cholesterol 43 mg/dL (>40); LDL Cholesterol Calculated 180 mg/dL (<100); Potassium 4.3 mmol/L (3.3-5.1); Sodium 136 mmol/L (135-145); Total Protein 7.7 g/dL (6.5-8.0); Triglycerides 234 mg/dL (<150)
[2024-09-30 08:49] LABS: HIV AB/AG Nonreactive (Nonreactive); HIV Num 1 0.14 S/CO (0.00-0.99)
[2024-09-30 17:53] LABS: HCV Log PCR <1.18 NOT DETECTED Log IU/mL (NOT DETECTED); HepC Viral Load <15 NOT DETECTED IU/mL (NOT DETECTED)
== END 2024-09-29 11:49 | disposition home or self-care (01) ==
LOC: HO.CHCLDS 11:48
PROVIDERS: Visit Provider Internal Medicine
DX: Z00.00 Encounter for general adult medical examination without abnormal findings (principal)
CPT/HCPCS: 36415; 80053; 80061; 84443; 85025; 87389; 87522

== ENCOUNTER 2024-11-03 15:41 | Outpatient (REF) | payer OTHER, SELFPAY ==
--- OUTSIDE RECORDS SUMMARY | 2024-11-03 16:24 | XMS_ITS | Encounter Summary ---
Author Organization [employer] Address [address] [facility] 7t [place] [address] Care Team Providers Care Cemetery Keeper Name Role Phone Gilbert Small MD Primary Care Provider [phone] Encounter Details Date Type Department Care Team (Latest Contact Info) Description 11/02/2024 Travel Social History Tobacco Use Types Packs/Day [...] Care Team (Late st Contact Info) Description 12/30/2024 11:30 AM EDT Office Visit [facility] MED [facility] PEDS [address] [place] [address] Gilbert Small MD [address] [place] [address] documented as of this encounter Visit Diagnoses Not on filedocumented in this encounter Additional Health Concerns Assessment Noted Time PHQ-9 Depression Total Score: 0 09/30/19 25 10:45 AM EDT documented as of this encounter Care Teams Cemetery Keeper Relationship Specialty Start Date End Date Gilbert Small MD [address] [place] [address] PCP - General Internal Medicine 06/11/11 documented as of this encounter
--- OUTSIDE RECORDS SUMMARY | 2024-11-03 16:24 | XMS_ITS | Encounter Summary ---
Author Organization [employer] Address [address] [facility] [address] [place] [address] Care Team Providers Care Group Home Worker Name Role Phone Gilbert Small MD Primary Care Provider [phone] Encounter Details Date Type Department Care Team (Latest Contact Info) Description 11/03/2024 Travel Social History Tobacco Use Types Packs/Day [...] Description 12/30/2024 11:30 AM EDT Office Visit [facility] MED & PEDS [address] [place] [address] Gilbert Small MD [address] [place] [address] documented as of this encounter Visit Diagnoses Not on filedocumented in this encounter Additional Health Concerns Assessment Noted Time PHQ-9 Depression Total Score: 0 09/30/19 25 10:45 AM EDT documented as of this encounter Care Teams Group Home Worker Relationship Specialty Start Date End Date Gilbert Small MD [address] [place] [address] PCP - General Internal Medicine 06/11/11 documented as of this encounter
--- OUTSIDE RECORDS SUMMARY | 2024-11-03 16:24 | XMS_ITS | Encounter Summary ---
Author Organization [employer] Address [address] [facility] [address] [place] [address] Care Team Providers Care Speech Coach Name Role Phone Gilbert Small MD Primary Care Provider [phone] Reason for Visit * Reason Comments Gynecologic Exam Encounter Details Date Type Department Care Team (Latest Contact Info) Description 11/03/2024 9:45 AM EDT Procedure Visit [facility] MED & PEDS [address] [place], [place] [phone] Arlyn Zacarias MD [address] [place] [address] Encounter for gynecological examination (general) (routine) with abnormal findings (Primary Dx) Social History Tobacco Use Types Packs/Day Years [...] Sign Reading Time Taken Comments Blood Pressure 137/91 11/03/2024 9:49 AM EDT Pulse 96 11/03/2024 9:49 AM EDT Temperature 36.2 ??C (97.1 ??F) 11/03/2024 9:49 AM ED T Respiratory Rate 18 11/03/2024 9:49 AM EDT Oxygen Saturation 98% 11/03/2024 9:49 AM EDT Inhaled Oxygen Concentration - - Weight 93 kg (205 lb) 11/03/2024 9:49 AM EDT Height 159 cm (5' 2.6 ) 11/03/2024 9:49 AM EDT Body Mass Index 36.78 11/03/2024 9:49 AM EDT documented in this encounter Progress Notes * Arlyn Zacarias MD - 11/03/2024 9:45 AM EDT Subjective Mirlande Kumar is a 39 y.o. woman here for pap. LMP:10/28/24 Menses frequency:monthly Menses concerns:none Desires within the next year:no [facility] control:IUD mirena x 3 years Breast concerns: Negative for: any concerns Menopausal symptoms negative for: hot flashes, night sweats, urinary incontinence and vaginal dryness. Review of Systems Review of Systems Constitutional: Negative for activity change, chills, fever and unexpected weight change. Respiratory: Negative for cough, shortness of breath and wheezing. Cardiovascular: Negative for chest pain, palpitations and leg swelling. Gastrointestinal: Negative for abdominal pain and blood in stool. Endocrine: Negative for polydipsia and polyuria. Genitourinary: Negative for decreased urine volume, difficulty urinating, dysuria and hematuria. Musculoskeletal: Negative for arthralgias and gait problem. Skin: Negative for color change and rash. Neurological: Negative for dizziness and headaches. Hematological: Negative for adenopathy. Psychiatric/Behavioral: Negative for dysphoric mood, hallucinations, sleep disturbance and suicidalideas. The patient is not nervous/anxious. No results found for: PAPPA No results found for: GILL Previous paps:normal in 2021 Mammogram: N/A Objective BP (!) 137/91 (BP Location: Left arm, Patient Position: Sitting, BP Cuff Size: Large adult) Pulse 96 Temp 97.1 ??F (36.2 ??C) (Oral) Resp 18 Ht 5' 2.6 (1.59 m) Wt 205 lb (93 kg) SpO2 98% BMI 36.78 kg/m?? Physical Exam Vitals reviewed. Exam conducted with a store operations manager present. Constitutional: Appearance: Normal appearance. Cardiovascular: Rate and Rhythm: Normal rate and regular rhythm. Chest: Chest wall: No mass, deformity or tenderness. Breasts: Cuong Score is 5. Right: Normal. No bleeding, inverted nipple, mass, nipple discharge, skin change or tenderness. Left: Normal. No bleeding, inverted nipple, mass, nipple discharge, skin change or tenderness. Genitourinary: Exam position: Lithotomy position. Cuong stage (genital): 5. Labia: Right: No rash, lesion or injury. Left: No rash, lesion or injury. Vagina: Normal. Cervix: No cervical motion tenderness, friability, lesion or erythema. Uterus: Normal. Not tender. Adnexa: Right: No mass, tenderness or fullness. Left: No mass, tenderness or fullness. Lymphadenopathy: Upper Body: Right upper body: No axillary adenopathy. Left upper body: No axillary adenopathy. Problem List Items Addressed This Visit None Pap with HPV testing done STI testing offered and done today,call with results if positive,patient has my chart Preventative care and harm reduction discussed, has IUD for control,breats exam done today,noabnormalities on exam today,F/U with PCP for preventive care documented in this encounter Plan of Treatment Upcoming Encounters Date Type Department Care Team (Late st Contact Info) Description 12/30/2024 11:30 AM EDT Office Visit [facility] MED & PEDS [address] [place] [address] Gilbert Small MD [address] [place] [address] Scheduled Orders Name Type Priority Associated Diagnoses Orde r Schedule Pap Smear Pathology and Cytology Routine Encounter for gynecological examination (general) (routine) with abnormal findings Ordered: 11/03/2024 Chlamydia/N. Gonorrhoeae RNA, TMA, Urogenitial Microbiology Routine Encounter for gynecological examination (general) (routine) with abnormal findings Ordered: 11/03/2024 documented as of this encounter Visit Diagnoses Diagnosis Encounter for gynecological examination (general) (routine) with abnormal findings- Primary documented in this encounter Additional Health Concerns Assessment Noted Time PHQ-9 Depression Total Score: 0 09/30/19 25 10:45 AM EDT documented as of this encounter Care Teams Speech Coach Relationship Specialty Start Date End Date Gilbert Small MD [address] [place] [address] PCP - General Internal Medicine 06/11/11 documented as of this encounter
--- OUTSIDE RECORDS SUMMARY | 2024-11-03 16:25 | XMS_ITS | Clinical Summary ---
Author Organization [employer] Address [address] [place] [address] Care Team Providers Care Complaint Supervisor Name Role Phone Gilbert Small MD Primary Care Provider [phone] Allergies No known active allergies Medications aluminum-magnesi um hydroxide-simeth icone (Maalox Max) 400-400-40 MG/5ML suspension take 20 milliliter by oral route between meals and at bedtime as needed 2 Active amitriptyline (Elavil) 25 MG tablet Take 1 tablet by mouth at bed time. 1 Active cholecalciferol (Vitamin D-3) 50 MCG (1999 UT) tablet Take 1 tablet by mouth at bed time. 2 Active cholecalciferol (Vitamin D-3) 50 MCG (2000 UT) tablet Take by mouth in the morning. 2 Active celecoxib (CeleBREX) 200 MG capsuleIndicatio ns:Costochondrit is, acute Take 1 capsule (200 mg) by mouth every 12 (twelve) hours. 30 capsule 3 Active azithromycin (Zithromax) 250 MG tabletIndication s:Squamous blepharitis of left upper eyelid Take 2 tabs orally on day 1 and then 1 tab orally for 4 more days 6 tablet 3 Active diclofenac (Cataflam) 50 MG tablet Take 1 tablet (50 mg) by mouth 3 times daily. 90 tablet 4 Active cyclobenzaprine (Flexeril) 10 MG tabletIndication s:Muscle spasm Take 1 tablet (10 mg) by mouth 3 times daily for 10 days. 30 tablet 5 Active phentermine 15 MG capsuleIndicatio ns:Class 2 obesity due to excess calories without serious comorbidity with body mass index (BMI) of 38.0 to 38.9 in adult Take 1 capsule (15 mg) by mouth before breakfast. 30 capsule 5 Active topiramate (Topamax) 25 MG tabletIndication s:Class 2 obesity due to excess calories without serious comorbidity with body mass index (BMI) of 38.0 to 38.9 in adult Take 1 tablet (25 mg) by mouth every 12 (twelve) hours. 60 tablet 11 5 09/30/19 26 Active fluconazole (Diflucan) 150 MG tabletIndication s:Pityriasis versicolor 2 tabs on day 1, 2 tabs on day 7 4 tablet 5 Active Active Problems Problem Noted Date Diagnosed Date Left-sided chest wall pain 09/01/2023 Assessment & Plan (09/02/2023 2:46 AM EST): Referred to risk intern due to strong history of heart disease in family. Ordered stress test and XR of chest. Acute pain of left shoulder 09/01/2023 Assessment & Plan (09/02/2023 2:49 AM EST): Ordered XR of left shoulder. Prescribed diclofenac and cyclenzaprine for pain management. Kidney stone 07/04/2022 Sciatica 11/28/2017 Encounters Date Type Department Care Team Description 11/03/2024 9:45 AM EDT Procedure Visit [facility] [address] [place] [address] Arlyn Zacarias MD Encounter for gynecological examination (general) (routine) with abnormal findings (Primary Dx) 11/03/2024 Travel 11/02/2024 Travel 10/01/2024 Telephone [facility] [address] [place] [address] Gilbert Small MD Results 09/29/2024 10:45 AM EDT Office Visit [facility] [address] [place] [address] Gilbert Small MD Annual physical exam (Primary Dx); Left-sided chest wall pain; Muscle spasm; Dietary counseling; Exercise counseling; Class 2 obesity due to excess calories without serious comorbidity with body mass index (BMI) of 38.0 to 38.9 in adult; Pityriasis versicolor 09/29/2024 Travel 09/28/2024 Travel 09/27/2024 Telephone [facility] [address] [place] [address] Gilbert Small MD Chart Prep 09/21/2024 Patient Outreach [facility] [address] [place] [address] Gilbert Small MD Pre-visit Planning (Pre visit [...] Mass Index 36.78 11/03/2024 9:49 AM EDT Plan of Treatment Upcoming Encounters Date Type Department Care Team ([facility] Contact Info) Description 12/30/2024 11:30 AM EDT Office Visit [facility] [address] [place] [address] Gilbert Small MD [address] [place] [address] Health Maintenance Due Date Last Done Comments Family Planning (PISQ) 2001 Hepatitis B Vaccines (1 of 3 - 19+ 3-dose series) 2005 HPV/Cotest 07/23/2023 07/23/2022, 11/12/2018 Pap Smear 07/23/2023 07/23/2022, 11/12/2018 COVID-19 Vaccine ( season) 2024 11/19/2020, 10/29/2020 Influenza Vaccine (#1) 2024 2, 04/05/2021, 04/13/2020, Additional history exists Cervical Cancer Screening 08/02/2025 Po stponed from 07/23/2023 (Other Medical Reasons) Alcohol/Substance Use Screening 09/29/2025 09/29/2024 Depression Screening 09/29/2025 09/29/2024, 09/30/19 25 SDOH Screening 09/29/2025 09/29/2024 Tobacco Screening 09/29/2025 09/29/2024 DTaP/Tdap/Td Vaccines (2 - Td or Tdap) 08/13/2026 08/13/2016 Lipid Panel 09/29/2029 09/29/2024, 01/30/2021 Zoster Vaccines (1 of 2) 2036 RSV Patients and Patients Aged 60 years or older (1 - 1-dose 75+ series) 2061 HIV Screening Completed 09/29/2024, 10/18/2021 Hepatitis C Screening Completed 09/29/2024 , 10/18/2021, 01/31/2021 HIB Vaccines Aged Out No longer eligi [...] Procedure Name Priority Date/Time Associated Diagnosis Comments TSH W/REFLEX TO FT4 Routine 09/29/2024 1 1:50 AM EDT Annual physical exam HEPATITIS C VIRAL RNA, QUANTITATIVE, REAL-TIME PCR Routine 09/29/2024 11:50 AM EDT Annual physical exam HIV 1/2 ANTIGEN/ANTIBODY, FOURTH GENERATION W/RFL Routine 09/29/2024 11:50 AM EDT Annual physical exam LIPID PANEL, STANDARD Routine 09/29/2024 11:50 AM EDT Annual physical exam COMPREHENSIVE METABOLIC PANEL Routine 09/29/2024 11:50 AM EDT Annual physical exam CBC WITH AUTO DIFFERENTIAL Routine 09/29/2024 11:50 AM EDT Annual physical exam THINPREP IMAGING PAP AND HPV MRNA E6/E7, WITH CT/NG, TRICHOMONAS Routine 07/23/2022 12:00 AM EST from Last 3 Months or Most Recently Relevant to Health Maintenance Results * TSH W/Reflex to FT4 (09/29/2024 11:50 AM EDT) TSH reflex Free T4 1.40 0.32 - 4.0 uIU/mL [facility] Blood Venous blood specimen / Unknown 09/29/2024 11:50 AM EDT 09/29/2024 2:05 PM EDT us Gilbert Small MD LAB BLOOD ORDERABLES Final Result [facility] [address] [place] [phone] * Hepatitis C Viral RNA, Quantitative, Real-Time PCR (09/29/2024 11:50 AM EDT) Pathologist [facility] Hepatitis C Viral Load <15 NOT DETECTED NOT DETECTED IU/mL [facility] HCV Log PCR <1.18 NOT DETECTED NOT DETECTED Log IU/mL [facility] Comment:For additional infor cory, please refer tohttp://education.Viralheat/faq/CQJ80e0(This link is being provided for informational/educational purposes only.)THIS TEST WAS PERFORMED AT:[facility] [place] [phone] MARIE MD Blood Venous blood specimen / Unknown 09/29/2024 11:50 AM EDT 09/29/2024 2:05 PM EDT Gilbert Small MD LAB BLOOD ORDERABLES Final Result [facility] [address] [place] [address] [phone] * (ABNORMAL) CBC auto differential (09/29/2024 11:50 AM EDT) [facility] White Blood Count 10.0 4.8 - 10.8 X10*3/uL [facility] Red Blood Count 4.40 4.20 - 5.50 X10*6/uL [facility] Hemoglobin 13.5 12.0 - 16.0 g/dl [facility] Hematocrit 39.9 37.0 - 47.0 % [facility] Mean Corpuscular Volume 90.7 80.0 - 98.0 fL [facility] Mean Corpuscular Hemoglobin 30.7 27.0 - 33.0 pg [facility] Mean Corpuscular HGB Conc 33.8 31.0 - 35.0 g/dl [facility] Red Cell Distribution Width 13.1 11.0 - 16.0 % [facility] Platelet Count 350 160 - 400 X10*3/uL [facility] Mean Platelet Volume 9.4 9.4 - 12.3 fL [facility] Neutrophils Percent Auto 51.6 45 - 73 % [facility] Imm Gran Pct Auto 0.3 0.0 - 0.4 % [facility] Lymphocytes Percent Auto 42.3(H) 20 - 40 % [facility] Monocytes Percent Auto 4.7 2 - 11 % [facility] Eosinophils Percent Auto 0.6 0 - 4 % [facility] Basophils Percent Auto 0.5 0 - 2 % [facility] NRBC Pct Auto 0.0 0.0 - 0.2 /100WBC [facility] Neutrophils Absolute Auto 5.1 2.0 - 8.3 x10*3/uL [facility] Imm Gran Abs Auto 0.03 0.00 - 0.03 X10*3/uL [facility] Lymphocytes Absolute Auto 4.2 1.2 - 4.9 X10*3/uL [facility] Monocytes Absolute Auto 0.5 0.1 - 1.2 X10*3/uL [facility] Eosinophils Absolute Auto 0.1 0.0 - 0.4 X10*3/uL [facility] Basophils Absolute Auto 0.1 0.0 - 0.2 X10*3/uL [facility] NRBC Abs Auto 0.000 0.0 - 0.012 X10*3/uL [facility] Blood Venous blood specimen / Unknown 09/29/2024 11:50 AM EDT 09/29/2024 2:05 PM EDT us Gilbert Small MD LAB BLOOD ORDERABLES Final Result [facility] [address] [place] [address] [phone] * HIV-1/2 Antigen and Antibodies, Fourth Generation, with Reflexes (09/29/2024 11:50 AM EDT) HIV AB/AG Nonreactive Nonreactive [facility] Comment:HIV-1 p24 Ag and/or HIV-1/HIV-2 Ab not detected.A test result that is nonreactive does not exclude thepossibility of exposure to or infection with HIV-1 and/orHIV-2. Nonreactive results in this assay for individualswith prior exposure to HIV-1 and/or HIV-2 may be due toantigen and antibody levels that are below the limit ofdetection of this assay.The [email or web address] HIV Ag/Ab Combo assay result andsupplemental assay results should be interpreted inconjunction with the patient's clinical presentation,history and other laboratory results. If the results areinconsistent with clinical evidence, additional testing issuggested to confirm the result. Blood Venous blood specimen / Unknown 09/29/2024 11:50 AM EDT 09/29/2024 2:05 PM EDT us Gilbert Small MD LAB BLOOD ORDERABLES Final Result [facility] [address] [place] [address] [phone] * (ABNORMAL) Lipid Panel, Standard (09/29/2024 11:50 AM EDT) Triglycerides 234(H) <150 mg/dL [facility] Comment:Desirable Triglyceri de: less than 150 mg/dLBorderline High Triglyceride 150-199 mg/dLHigh Triglyceride: 200-499 mg/dLVery High Triglyceride: greater than or equal to 5OO mg/dL Cholesterol 269(H) <200 mg/dL [facility] Comment:Desirable Cholestero l: less than 200 mg/dLBorderline High Cholesterol: 200-239 mg/dLHigh Cholesterol: greater than 239 mg/dL LDL Cholesterol Calculated 180(H) <100 mg/dL [facility] Comment:Desirable LDL: less than 100 mg/dLNear Optimal/Above Optimal LDL: 110- 129 mg/dLBorderline High LDL: 130-159 mg/dLHigh LDL: 160-189 mg/dLVery High LDL: greater than or equal to 190 mg/dL HDL Cholesterol 43 >40 mg/dL [facility] Comment:Desirable HDL: great er than 40 mg/dL Note: This HDL assay may give artificially low results in patients with liver disease. Blood Venous blood specimen / Unknown 09/29/2024 11:50 AM EDT 09/29/2024 2:05 PM EDT us Gilbert Small MD LAB BLOOD ORDERABLES Final Result [facility] [address] [place] [address] [phone] * (ABNORMAL) Comprehensive Metabolic Panel (09/29/2024 11:50 AM EDT) Sodium 136 135 - 145 mmol/L [facility] Potassium 4.3 3.3 - 5.1 mmol/L [facility] Chloride 107 96 - 108 mmol/L [facility] Carbon Dioxide 23 22 - 29 mmol/L [facility] Anion Gap 10(L) 12 - 20 [facility] Urea Nitrogen (BUN) 11 9 - 16 mg/dL [facility] Creatinine, Serum 0.65 0.5 - 1.4 mg/dL [facility] Estimated Glomerular Filt Rate >60 [facility] Comment:Chronic Kidney Disea se: Estimated GFR < 60 mL/min/1.14u4Xljaqe Kidney Disease: Estimated GFR < 15 mL/min/1.73m2 Glucose 85 60 - 115 mg/dL [facility] Calcium 10.1 8.4 - 10.2 mg/dL [facility] Bilirubin, Total 0.4 0.0 - 1.0 mg/dL [facility] Aspartate Amino Transferase 26 5 - 31 U/L [facility] Alanine Aminotransferase 29 0 - 31 U/L [facility] Total Protein 7.7 6.5 - 8.0 g/dL [facility] Albumin Level 4.3 3.5 - 5.0 g/dL [facility] Alkaline Phosphatase 79 39 - 117 U/L [facility] Blood Venous blood specimen / Unknown 09/29/2024 11:50 AM EDT 09/29/2024 2:05 PM EDT us Gilbert Small MD LAB BLOOD ORDERABLES Final Result [facility] [address] [place] [address] [phone] * Thinprep TIS PAP And HPV mRNA E6/E7, CT/NG, TRICH (07/23/2022 12:00 AM EST) Clinical Information: Intrauterine contraceptive device NEW ONSET BLEEDING W IUD [employer] LMP: NONE GIVEN [employer] Prev. PAP: NONE GIVEN [employer] Prev. BX: NONE GIVEN [facility] SOURCE: None given [employer] Statement Of Adequacy: [facility] Comment: Satisfactory for evaluation. Endocervical/transformation zone component absent. Interpretation/Re sult: Negative for intraepithelial lesion or malignancy. [employer] Infection Shift in vaginal marcia suggestive of bacterial vaginosis. [employer] COMMENT: [facility] Comment: This case could not be evaluated with computer assisted technology. The slide was manually screened according to routine procedures. [employer] Project Manager: Melissa [employer] Comment: BLC,CT(ASCP) CT screening location: [address] ??[phone] (Always Message) [facility] Comment: EXPLANATORY NOTE: The Pap is a [...] HPV nRNA E6/E7 Not Detected Not Detected [facility] Comment: Methodology: Beauty Culturist Apprentice-Mediated Amplification This assay detects E6/E7 viral messenger RNA (mRNA) from 14 high-risk HPV types (16,18,31,33,35,39,45,51,52,56,58,59,66,68). Cervical sources are required for HPV testing. If a vaginal source from a patient who has had a total hysterectomy with removal of cervix was submitted, please contact the testing laboratory for alternative testing options. For additional information, please refer to http://Frontstart.Viralheat/faq/KWV096y8 (This link if provided for information/ educational purposes only.) Chlamydia trachomatis RNA, TMA, Urogenital NOT DETECTED NOT DETECTED [facility] Neisseria gonorrhoeae RNA, TMA, Urogenital NOT DETECTED NOT DETECTED [facility] (Always Message) [email or web address] Comment: The analytical performance characteristics of this assay, when used to test SurePath(TM) specimens have been determined by [employer]. The modifications have not been cleared or approved by the FDA. This assay has been validated pursuant to the CLIA regulations and is used for clinical purposes. For additional information, please refer to https://Frontstart.Viralheat/faq/WFS982 (This link is being provided for information/ educational purposes only.) Trichomonas vaginalis, QL, TMA, PAP Vial NOT DETECTED NOT DETECTED [facility] Comment: The analytical performance characteristics of this assay have been determined by [employer] [facility]. The modifications have not been cleared or approved by the FDA. This assay has been validated pursuant to the CLIA regulations and is used for clinical purposes. For additional information, please refer to http://[employer]/ faq/Trichomonastma (This link is being provided for information/ educational purposes only.) 07/23/2022 07/24/2022 8:2 4 PM EST Narrative [facility] - 08/01/2022 4:39 PM EST FASTING: UNKNOWN Denise Lyons CNM LAB PATHOLOGY ORDERABLES Final Result [facility] [address] [place] [address] [facility] [address], ([address]) [place] [phone] from Last 3 Months or Most Recently Relevant to Health Maintenance [place] [address] [place] [address] Care Teams Complaint Supervisor Relationship Specialty Start Date End Date Gilbert Small MD [address] [place] [id number] PCP - General Internal Medicine 06/11/11
[2024-11-03 20:23] LABS: CT PCR NOT DETECTED (Not Detect.); NG PCR NOT DETECTED (Not Detect.)
== END 2024-11-03 15:42 | disposition home or self-care (01) ==
LOC: HO.CHCLNP 15:41
PROVIDERS: Visit Provider Pediatrics
DX: Z01.411 Encounter for gynecological examination (general) (routine) with abnormal findings (principal)
CPT/HCPCS: 87491; 87591

== ENCOUNTER 2024-11-03 18:08 | Outpatient (REF) | payer OTHER, SELFPAY ==
--- OUTSIDE RECORDS SUMMARY | 2024-11-03 18:10 | XMS_ITS | Encounter Summary ---
Author Organization [employer] Address [address] [place] [address] Care Team Providers Care Cardiovascular Invasive Specialist Name Role Phone Gilbert Small MD Primary Care Provider [phone] Encounter Details Date Type Department Care Team [...] Description 12/30/2024 11:30 AM EDT Office Visit [facility] [address] [place] [address] Gilbert Small MD [address] [place] [address] documented as of this encounter Visit Diagnoses Not on filedocumented in this encounter Additional Health Concerns Assessment Noted Time PHQ-9 Depression Total Score: 0 09/30/19 25 10:45 AM EDT documented as of this encounter Care Teams Cardiovascular Invasive Specialist Relationship Specialty Start Date End Date Gilbert Small MD [address] [place] [address] PCP - General Internal Medicine 06/11/11 documented as of this encounter
--- OUTSIDE RECORDS SUMMARY | 2024-11-03 18:10 | XMS_ITS | Encounter Summary ---
Author Organization [employer] Address [address] [facility] [address] [place] [address] Care Team Providers Care Supervisor Shipping Room Name Role Phone Gilbert Small MD Primary Care Provider [phone] Encounter Details Date Type Department Care Team [...] Description 12/30/2024 11:30 AM EDT Office Visit [facility] [address] [place] [address] Gilbert Small MD [address] [place] [address] documented as of this encounter Visit Diagnoses Not on filedocumented in this encounter Additional Health Concerns Assessment Noted Time PHQ-9 Depression Total Score: 0 09/30/19 25 10:45 AM EDT documented as of this encounter Care Teams Supervisor Shipping Room Relationship Specialty Start Date End Date Gilbert Small MD [address] [place] [address] PCP - General Internal Medicine 06/11/11 documented as of this encounter
--- OUTSIDE RECORDS SUMMARY | 2024-11-03 18:10 | XMS_ITS | Clinical Summary ---
Author Organization [employer] Address [address] [facility] [address] [place] [address] Care Team Providers Care Dynamite Shooter Name Role Phone Gilbert Small MD Primary Care Provider [phone] Allergies No known active allergies Medications aluminum-magnesi [...] Plan (09/02/2023 2:46 AM EST): Referred to embedded systems engineer due to strong history of heart disease in family. Ordered stress test and XR of chest. Acute pain of left shoulder 09/01/2023 Assessment & Plan (09/02/2023 2:49 AM EST): Ordered XR of left shoulder. Prescribed diclofenac and cyclenzaprine for pain management. Kidney stone 07/04/2022 Sciatica 11/28/2017 Encounters Date Type Department Care Team Description 11/03/2024 9:45 AM EDT Procedure Visit [facility] [address] [place] [address] Arlyn Zacarias MD Encounter for gynecological examination (general) (routine) with abnormal findings (Primary Dx) 11/03/2024 Travel 11/02/2024 Travel 10/01/2024 Telephone [facility] [address] [place] [address] Gilbert Small MD Results 09/29/2024 10:45 AM EDT Office Visit [facility] [address] [place] [address] Gilbert Small MD Annual physical exam (Primary Dx); Left-sided chest wall pain; Muscle spasm; Dietary counseling; Exercise counseling; Class 2 obesity due to excess calories without serious comorbidity with body mass index (BMI) of 38.0 to 38.9 in adult; Pityriasis versicolor 09/29/2024 Travel 09/28/2024 Travel 09/27/2024 Telephone [facility] [address] [place] [address] Gilbert Small MD Chart Prep 09/21/2024 Patient Outreach [facility] [address] [place] [address] Gilbert Small MD Pre-visit Planning (Pre visit [...] Upcoming Encounters Date Type Department Care Team ([facility] Contact Info) Description 12/30/2024 11:30 AM EDT Office Visit [facility] [address] [place] [address] Gilbert Small MD [address] [place] [address] Health Maintenance Due Date Last Done Comments [...] Free T4 1.40 0.32 - 4.0 uIU/mL [facility] Blood Venous blood specimen / Unknown 09/29/2024 11:50 AM EDT 09/29/2024 2:05 PM EDT us Gilbert Small MD LAB BLOOD ORDERABLES Final Result [facility] [address] [place] [phone] * Hepatitis C Viral RNA, Quantitative, Real-Time PCR (09/29/2024 11:50 AM EDT) Pathologist [facility] Hepatitis C Viral Load <15 NOT DETECTED NOT DETECTED IU/mL [facility] HCV Log PCR <1.18 NOT DETECTED NOT DETECTED Log IU/mL [facility] Comment:For additional infor cory, please refer tohttp://education.GeniusMatcher/faq/IHP99j5(This link is being provided for informational/educational purposes only.)THIS TEST WAS PERFORMED AT:[facility] [place] [id number] MARIE MD Blood Venous blood specimen / Unknown 09/29/2024 11:50 AM EDT 09/29/2024 2:05 PM EDT Gilbert Small MD LAB BLOOD ORDERABLES Final Result [facility] [address] [place] [address] [phone] * (ABNORMAL) CBC auto differential (09/29/2024 11:50 AM EDT) [facility] White Blood Count 10.0 4.8 - 10.8 X10*3/uL [facility] Red Blood Count 4.40 4.20 - 5.50 X10*6/uL [facility] Hemoglobin 13.5 12.0 - 16.0 g/dl [facility] Hematocrit 39.9 37.0 - 47.0 % [facility] Mean Corpuscular Volume 90.7 80.0 - 98.0 fL [facility] Mean Corpuscular Hemoglobin 30.7 27.0 - 33.0 pg [facility] Mean Corpuscular HGB Conc 33.8 31.0 - 35.0 g/dl [facility] Red Cell Distribution Width 13.1 11.0 - 16.0 % [facility] Platelet Count 350 160 - 400 X10*3/uL [facility] Mean Platelet Volume 9.4 9.4 - 12.3 fL [facility] Neutrophils Percent Auto 51.6 45 - 73 % [facility] Imm Gran Pct Auto 0.3 0.0 - 0.4 % [facility] Lymphocytes Percent Auto 42.3(H) 20 - 40 % [facility] Monocytes Percent Auto 4.7 2 - 11 % [facility] Eosinophils Percent Auto 0.6 0 - 4 % [facility] Basophils Percent Auto 0.5 0 - 2 % [facility] NRBC Pct Auto 0.0 0.0 - 0.2 /100WBC [facility] Neutrophils Absolute Auto 5.1 2.0 - 8.3 x10*3/uL [facility] Imm Gran Abs Auto 0.03 0.00 - 0.03 X10*3/uL [facility] Lymphocytes Absolute Auto 4.2 1.2 - 4.9 X10*3/uL [facility] Monocytes Absolute Auto 0.5 0.1 - 1.2 X10*3/uL [facility] Eosinophils Absolute Auto 0.1 0.0 - 0.4 X10*3/uL [facility] Basophils Absolute Auto 0.1 0.0 - 0.2 X10*3/uL [facility] NRBC Abs Auto 0.000 0.0 - 0.012 X10*3/uL [facility] Blood Venous blood specimen / Unknown 09/29/2024 11:50 AM EDT 09/29/2024 2:05 PM EDT us Gilbert Small MD LAB BLOOD ORDERABLES Final Result [facility] [address] [place] [address] [phone] * HIV-1/2 Antigen and Antibodies, Fourth Generation, with Reflexes (09/29/2024 11:50 AM EDT) HIV AB/AG Nonreactive Nonreactive [facility] Comment:HIV-1 p24 Ag and/or HIV-1/HIV-2 Ab not detected.A test result that is nonreactive does not exclude thepossibility of exposure to or infection with HIV-1 and/orHIV-2. Nonreactive results in this assay for individualswith prior exposure to HIV-1 and/or HIV-2 may be due toantigen and antibody levels that are below the limit ofdetection of this assay.The Signpost HIV Ag/Ab Combo assay result andsupplemental assay results should be interpreted inconjunction with the patient's clinical presentation,history and other laboratory results. If the results areinconsistent with clinical evidence, additional testing issuggested to confirm the result. Blood Venous blood specimen / Unknown 09/29/2024 11:50 AM EDT 09/29/2024 2:05 PM EDT us Gilbert Small MD LAB BLOOD ORDERABLES Final Result [facility] [address] [place] [phone] * (ABNORMAL) Lipid Panel, Standard (09/29/2024 11:50 AM EDT) Triglycerides 234(H) <150 mg/dL [facility] Comment:Desirable Triglyceri de: less than 150 mg/dLBorderline High Triglyceride 150-199 mg/dLHigh Triglyceride: 200-499 mg/dLVery High Triglyceride: greater than or equal to 5OO mg/dL Cholesterol 269(H) <200 mg/dL [facility] Comment:Desirable Cholestero l: less than 200 mg/dLBorderline High Cholesterol: 200-239 mg/dLHigh Cholesterol: greater than 239 mg/dL LDL Cholesterol Calculated 180(H) <100 mg/dL [facility] Comment:Desirable LDL: less than 100 mg/dLNear Optimal/Above Optimal LDL: 110- 129 mg/dLBorderline High LDL: 130-159 mg/dLHigh LDL: 160-189 mg/dLVery High LDL: greater than or equal to 190 mg/dL HDL Cholesterol 43 >40 mg/dL [facility] Comment:Desirable HDL: great er than 40 mg/dL Note: This HDL assay may give artificially low results in patients with liver disease. Blood Venous blood specimen / Unknown 09/29/2024 11:50 AM EDT 09/29/2024 2:05 PM EDT us Gilbert Small MD LAB BLOOD ORDERABLES Final Result [facility] [address] [place] [address] [phone] * (ABNORMAL) Comprehensive Metabolic Panel (09/29/2024 11:50 AM EDT) Sodium 136 135 - 145 mmol/L [facility] Potassium 4.3 3.3 - 5.1 mmol/L [facility] Chloride 107 96 - 108 mmol/L [facility] Carbon Dioxide 23 22 - 29 mmol/L [facility] Anion Gap 10(L) 12 - 20 [facility] Urea Nitrogen (BUN) 11 9 - 16 mg/dL [facility] Creatinine, Serum 0.65 0.5 - 1.4 mg/dL [facility] Estimated Glomerular Filt Rate >60 [facility] Comment:Chronic Kidney Disea se: Estimated GFR < 60 mL/min/1.53z1Qdeyin Kidney Disease: Estimated GFR < 15 mL/min/1.73m2 Glucose 85 60 - 115 mg/dL [facility] Calcium 10.1 8.4 - 10.2 mg/dL [facility] Bilirubin, Total 0.4 0.0 - 1.0 mg/dL [facility] Aspartate Amino Transferase 26 5 - 31 U/L [facility] Alanine Aminotransferase 29 0 - 31 U/L [facility] Total Protein 7.7 6.5 - 8.0 g/dL [facility] Albumin Level 4.3 3.5 - 5.0 g/dL [facility] Alkaline Phosphatase 79 39 - 117 U/L [facility] Blood Venous blood specimen / Unknown 09/29/2024 11:50 AM EDT 09/29/2024 2:05 PM EDT us Gilbert Small MD LAB BLOOD ORDERABLES Final Result [facility] [address] [place] [address] [phone] * Thinprep TIS PAP And HPV mRNA E6/E7, CT/NG, TRICH (07/23/2022 12:00 AM EST) Clinical Information: Intrauterine contraceptive device NEW ONSET BLEEDING W IUD [facility] LMP: NONE GIVEN [facility] Prev. PAP: NONE GIVEN [facility] Prev. BX: NONE GIVEN [employer] SOURCE: None given [facility] Statement Of Adequacy: [employer] Comment: Satisfactory for evaluation. Endocervical/transformation zone component absent. Interpretation/Re sult: Negative for intraepithelial lesion or malignancy. [facility] Infection Shift in vaginal marcia suggestive of bacterial vaginosis. [facility]ht COMMENT: [employer] Comment: This case could not be evaluated with computer assisted technology. The slide was manually screened according to routine procedures. Videographer: Melissa EVRGRt Comment: BLC,CT(ASCP) CT screening location: [address] ??[phone] (Always Message) [facility] Comment: EXPLANATORY NOTE: The Pap is a [...] HPV nRNA E6/E7 Not Detected Not Detected [employer] Comment: Methodology: Senior Water/Wastewater Engineer-Mediated Amplification This assay detects E6/E7 viral messenger RNA (mRNA) from 14 high-risk HPV types (16,18,31,33,35,39,45,51,52,56,58,59,66,68). Cervical sources are required for HPV testing. If a vaginal source from a patient who has had a total hysterectomy with removal of cervix was submitted, please contact the testing laboratory for alternative testing options. For additional information, please refer to http://Moprise.GeniusMatcher/faq/BRV595j1 (This link if provided for information/ educational purposes only.) Chlamydia trachomatis RNA, TMA, Urogenital NOT DETECTED NOT DETECTED [employer] Neisseria gonorrhoeae RNA, TMA, Urogenital NOT DETECTED NOT DETECTED [employer] (Always Message) [facility] Comment: The analytical performance characteristics of this assay, when used to test SurePath(TM) specimens have been determined by [employer]. The modifications have not been cleared or approved by the FDA. This assay has been validated pursuant to the CLIA regulations and is used for clinical purposes. For additional information, please refer to https://Moprise.GeniusMatcher/faq/RGR991 (This link is being provided for information/ educational purposes only.) Trichomonas vaginalis, QL, TMA, PAP Vial NOT DETECTED NOT DETECTED [employer] Comment: The analytical performance characteristics of this assay have been determined by [employer]. The modifications have not been cleared or approved by the FDA. This assay has been validated pursuant to the CLIA regulations and is used for clinical purposes. For additional information, please refer to http://Deskidea/ faq/Trichomonastma (This link is being provided for information/ educational purposes only.) 07/23/2022 07/24/2022 8:2 4 PM EST Narrative [facility] - 08/01/2022 4:39 PM EST FASTING: UNKNOWN Denise Lyons CNM LAB PATHOLOGY ORDERABLES Final Result [facility] [address] [facility] [place] [address] [employer] [address] [facility], ([address]) [place] [address] from Last 3 Months or Most Recently Relevant to Health Maintenance [place] [place] [address] Care Teams Dynamite Shooter Relationship Specialty Start Date End Date Gilbert Small MD [address] [place] [phone] PCP - General Internal Medicine 06/11/11
--- OUTSIDE RECORDS SUMMARY | 2024-11-03 18:10 | XMS_ITS | Encounter Summary ---
Author Organization [employer] Address [address] [facility] [address] [place] [address] Care Team Providers Care Franchise Broker Name Role Phone Gilbert Small MD Primary Care Provider [phone] Reason for Visit * Reason Comments Gynecologic Exam Encounter Details Date Type Department Care Team (Latest Contact Info) Description 11/03/2024 9:45 AM EDT Procedure Visit [facility] [address] [place], [place] [phone] Arlyn Zacarias MD [address] [place] [address] Encounter for gynecological examination (general) (routine) with [...] Menses concerns:none Desires within the next year:no [facility] control:IUD mirena x 3 years Breast concerns: [...] Exam Vitals reviewed. Exam conducted with a inspector and sorter present. Constitutional: Appearance: Normal appearance. Cardiovascular: Rate [...] AM EDT Office Visit [facility] [address] [place] [address] Gilbert Small MD [address] [place] [address] Scheduled Orders Name Type Priority Associated Diagnoses [...] documented as of this encounter Care Teams Franchise Broker Relationship Specialty Start Date End Date Gilbert Small MD [address] [place] [address] PCP - General Internal Medicine 06/11/11 documented as of this encounter
[2024-11-10 10:25] LABS: HPV Genotype 16 Negative (Negative); HPV Genotype 18 Negative (Negative); HPV High Risk Positive (Negative)
== END 2024-11-03 18:09 | disposition home or self-care (01) ==
LOC: HO.HHCLNP 18:08
PROVIDERS: Visit Provider Pediatrics
DX: Z01.411 Encounter for gynecological examination (general) (routine) with abnormal findings (principal)
CPT/HCPCS: 87626; 88175